=== PATIENT | male | born 1990 | race Caucasian/White ===

== ENCOUNTER → 2023-05-29 | Outpatient (CLI) | payer OTHER | LOC: M PLAIMG 13:25 | DX: M75.22 Bicipital tendinitis, left shoulder (principal); M25.512 Pain in left shoulder ==

== ENCOUNTER 2024-06-04 08:48 | Emergency (ER) | payer BC, OTHER ==
[~2024-06-04] VITALS: Ht 167.6 cm; Wt 87.6 kg
[2024-06-04 09:49] LABS: BASO # 0.1 10^3/uL (0.0-0.2); EOS # 0.2 10^3/uL (0.0-0.5); EOS % 2.2 % (0.0-3.0); HEMATOCRIT 48.6 % (42.0-52.0); HEMOGLOBIN 15.9 g/dl (13.5-17.5); LYMPH # 1.5 10^3/uL (1.5-5.0); MEAN CORPUSCULAR HEMOGLOBIN 29.8 pg (27.0-33.0); MEAN CORPUSCULAR HGB CONC 32.7 g/dl (32.0-36.5); MONO # 0.7 10^3/uL (0.0-0.8); MONO % 8.3 % (2.0-8.0); NEUTROPHILS # 5.7 10^3/uL (1.5-8.5); NEUTROPHILS % 70.3 % (36.0-66.0); PLATELET COUNT, AUTOMATED 221 10^3/uL (150-450); RED BLOOD COUNT 5.34 10^6/uL (4.30-6.10); WHITE BLOOD COUNT 8.1 10^3/uL (4.0-10.0)
[2024-06-04 10:16] LABS: LIPASE 39 U/L (12-53)
[2024-06-04 10:19] LABS: ALBUMIN 4.3 G/DL (3.2-5.2); ALKALINE PHOSPHATASE 55 U/L (46-116); ALT/SGPT 44 U/L (7.0-40); AST/SGOT 26 U/L (<34); BILIRUBIN,DIRECT < 0.1 MG/DL (<0.4); BILIRUBIN,TOTAL 0.3 MG/DL (0.3-1.2); BLOOD UREA NITROGEN 10 MG/DL (9-23); CALCIUM LEVEL 10.5 MG/DL (8.5-10.1); CARBON DIOXIDE LEVEL 26 MMOL/L (20-31); CHLORIDE LEVEL 106 MMOL/L (98-107); CREATININE FOR GFR 0.96 MG/DL (0.70-1.30); GLOMERULAR FILTRATION RATE > 60.0 (>60); GLUCOSE, FASTING 102 MG/DL (60-100); POTASSIUM SERUM 4.4 MMOL/L (3.5-5.1); SODIUM LEVEL 137 MMOL/L (136-145); TOTAL PROTEIN 7.2 G/DL (5.7-8.2)
[2024-06-04] MEDS ORDERED: DICY-61 (10:41)
[2024-06-04] MEDS ORDERED: BUPR150T12 (10:41)
[2024-06-04] MEDS ORDERED: PANT40TA29 (10:41)
[2024-06-04 10:57] LABS: CK-MB VALUE MASS < 1.0 NG/ML (<3.6)
[2024-06-04 10:58] LABS: CPK CREATINE PHOSPHOKINASE 109 U/L (46-171); MB/CK RELATIVE INDEX 0.91 (< OR =4)
[2024-06-04] MEDS: NS 1,000 ML IV ONE (11:03)
[2024-06-04] MEDS: ONDANSETRON 4MG 2ML VIAL IV ONE (11:03)
[2024-06-04] MEDS: SUCRALFATE SUSP 1GM/10ML UD PO ONE (11:03)
[2024-06-04] MEDS: PANTOPRAZOLE 40MG VIAL IV ONE (11:03)
[2024-06-04] MEDS ORDERED: ONDA-282 PO (13:52)
[2024-06-04] MEDS ORDERED: REGL10TA6 PO (13:53)
[2024-06-04] MEDS ORDERED: LOPE-26 PO (13:55)
[2024-06-04 14:05] VITALS: BP 129/80; TEMP 98.4; O2SAT 98
== END 2024-06-04 14:07 | disposition home or self-care (01) ==
LOC: M ED 08:48
DX: R11.2 Nausea with vomiting, unspecified (principal); R19.7 Diarrhea, unspecified; R10.9 Unspecified abdominal pain; K21.9 Gastro-esophageal reflux disease without esophagitis; K58.0 Irritable bowel syndrome with diarrhea; F17.210 Nicotine dependence, cigarettes, uncomplicated; Z79.899 Other long term (current) drug therapy
CPT/HCPCS: 71046; 74176; 80048; 80076; 81001; 82550; 82553; 83690; 84484; 85025; 87486; 87507; 87581; 87633; 87798; 93005; 96361; 96374; 99284; J2405; J2470